=== PATIENT | male | born 2005 | race Caucasian/White ===

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

== ENCOUNTER 2025-07-01 11:28 | Emergency (ER) | payer OTHER ==
[~2025-07-01] VITALS: Ht 185.4 cm; Wt 80.7 kg
[2025-07-01] MEDS ORDERED: ACETAMINOPHEN 500 MG GEL..CAP PO ONE ×2 (15:45→15:57)
[2025-07-01] MEDS ORDERED: CETIRIZINE HCL 5 MG/5 ML ML PO ONE (15:45)
[2025-07-01] MEDS ORDERED: CETIRIZINE HCL 5MG/5ML BLIST.PACK PO ONE (15:58)
[2025-07-01 16:04] LABS: BASO % 0.6 % (0.1-1.2); EOS # 0.05 (0.04-0.54); EOS % 0.7 % (0.7-7.0); LYMPH # 1.82 (1.18-3.74); LYMPH % 27.3 % (19.3-53.1); MEAN PLATELET VOLUME 8.90 fl (9.4-12.4); MONO # 0.59 (0.24-0.82); MONO % 8.8 % (4.7-12.5); NEUT # 4.16 (1.56-6.13); NEUT % 62.5 % (34.0-71.1); RED CELL DISTRIBUTION WIDTH 11.9 % (11.6-14.4)
[2025-07-01 17:31] LABS: COVID-19 AG NEGATIVE (NEGATIVE)
[2025-07-01] MEDS ORDERED: ZYRTEC10 MG PO (17:46)
[2025-07-01] MEDS ORDERED: FLONASE ALLERG9.9 ML NASAL (17:46)
[2025-07-01 18:54] VITALS: BP 122/76; O2SAT 99
== END 2025-07-01 18:55 ==
LOC: ER 11:29
PROVIDERS: General Practice
DX: J00 Acute nasopharyngitis [common cold] (principal); Z20.822 Contact with and (suspected) exposure to COVID-19